=== PATIENT | female | born 1990 | race Caucasian/White ===

== ENCOUNTER 2017-09-24 09:36 | Emergency (ER) | payer SELFPAY ==
[2017-09-24 09:55] VITALS: BP 135/93; PULSE 87; RESP 22; TEMP 98.8
[2017-09-24] MEDS ORDERED: Lidocaine 2% Inj (20ml) INFIL ONE (10:29)
[2017-09-24] MEDS ORDERED: Lidocaine 2% Inj (20ml) ONE (10:32)
[2017-09-24] MEDS ORDERED: Bacitracin 500 Units/gm Oint Foilpak UD ONE (11:18)
--- NOTE | 2017-09-24 11:47 | C.PDOC ---
History Of Present Illness 27 y/o F p/w L hand 4th and 5th digit lacerations suffered 1 hour ago when she accidentally cut herself with a knife while cooking. She states knife was clean. Denies numbness or weakness. Time Seen by Provider: 09/24/17 10:05 Chief Complaint (Nursing): Abnormal Skin Integrity Past Medical History Vital Signs: Last Vital Signs Temp 98.8 F 09/24/17 09:53 Pulse 87 09/24/17 09:53 Resp 22 09/24/17 09:53 BP 135/93 H 09/24/17 09:53 Pulse Ox Family History: States: No Known Family Hx - Social History Hx Alcohol Use: No Hx Substance Use: No - Immunization History Hx Tetanus Toxoid Vaccination: No Review Of Systems Except As Marked, All Systems Reviewed And Found Negative. Eyes: Negative for: Vision Change Respiratory: Negative for: Shortness of Breath Physical Exam - Physical Exam Additional Physical Exam Comments: Gen: NAD Head: NC CV: Radial pulse 2+ Skin: 2cm laceration to flexor aspect of L 4th digit, 1.5 cm laceration to flexor aspect of L 5th digit. FROM intact. Laceration - Laceration Repair No standard instances Wound Length (In cm): 2.0 1.5 Description Of Wound: Linear, Clean Wound Cleansed With: Betadine, Sterile Saline Anesthesia: Lidocaine 2% Wound Examination: Irrigated With Saline, No FB With Wound Exploration, No Tendon Injury With Wound Exploration Wound Closure: Suture (4/4 6-0 ethilon) Suture Technique And Material Used: Interrupted Wound Complexity: Simple Medical Decision Making Medical Decision Making: Tetanus updated. Lacerations closed. Return in 10 days for removal. Return immediately for fever, erythema, discharge of pus, or any other problem. Disposition - Disposition Disposition: HOME/ ROUTINE Disposition Time: 11:47 Condition: STABLE Instructions: Finger Laceration (ED) Forms: [employer] (Icelandic) - Clinical Impression Clinical Impression: Laceration of finger
== END 2017-09-24 11:51 | disposition home or self-care (01) ==
LOC: C.ER 09:36
DX: S61.215A Laceration without foreign body of left ring finger without damage to nail, initial encounter (principal); S61.217A Laceration without foreign body of left little finger without damage to nail, initial encounter; W26.0XXA Contact with knife, initial encounter; Z23 Encounter for immunization

== ENCOUNTER 2017-10-04 13:10 | Emergency (ER) | payer SELFPAY ==
[2017-10-04 13:14] VITALS: BMI 23.5
[2017-10-04 13:16] VITALS: BP 118/73; PULSE 84; TEMP 98.5; O2SAT 98
--- NOTE | 2017-10-04 13:32 | C.PDOC ---
History Of Present Illness FOR SUTURE REMOVAL. PLACED 09/24 PS HEALING WELL. CO DECREASED MOVEMENT L 5TH FINGER "DOESN'T CLOSE ALL THE WAY LIKE BEFORE". NEW ONSET SINCE INJURY. DENIES OTHER ASSOC SX EXAM NONTOXIC EXT L 5TH FINGER LIMITED ROM DIP. FULL ROM PIP. NO DEFORM, SWELL. L 4TH FINGER AROM WO DIFF. SKIN HEALED LAC L 4 & 5 FINGERS. NO SWELL, REDNESS. SUTURES INTACT PROC SUTURES REMOVED W 11 BLADE WO DIFF. PT TOLERATED WELL MDM PT ADVISED NEED FOR HAND SURGEON FU FOR POSSIBLE TENDON INJURY. Time Seen by Provider: 10/04/17 13:17 Chief Complaint (Nursing): Suture/Staple Removal History Per: Patient History/Exam Limitations: no limitations Onset/Duration Of Symptoms: Days Ago (10) Past Medical History Reviewed: Historical Data, Nursing Documentation, Vital Signs Vital Signs: Last Vital Signs Temp 98.5 F 10/04/17 13:13 Pulse 84 10/04/17 13:13 Resp 18 10/04/17 13:13 BP 118/73 10/04/17 13:13 Pulse Ox 98 10/04/17 13:38 Family History: States: No Known Family Hx - Social History Hx Alcohol Use: No Hx Substance Use: No - Immunization History Hx Tetanus Toxoid Vaccination: Yes Hx Influenza Vaccination: No Hx Pneumococcal Vaccination: No Review Of Systems Except As Marked, All Systems Reviewed And Found Negative. Constitutional: Negative for: Fever, Chills Musculoskeletal: Positive for: Other ((+) sutures in left 5th finger, new onset of decrease movement). Negative for: Arm Pain, Hand Pain Neurological: Negative for: Weakness, Numbness Physical Exam - Physical Exam Appears: Non-toxic, No Acute Distress Skin: Warm, Dry, No Rash, Other ((+) healed laceration to left 4th & 5th fingers , no swelling, no redness) Head: Atraumatic, Normacephalic Respiratory: Normal Breath Sounds Extremity: Capillary Refill (<2 secs), Other (Left 5th Finger - Limited ROM at the DIP. Dull ROM at the PIP. No deformity. No swelling. Left 4th finger AROM w/ o difficulty.) Neurological/Psych: Oriented x3, Normal Speech, Normal Sensation ED Course And Treatment O2 Sat by Pulse Oximetry: 98 (RA) Pulse Ox Interpretation: Normal Medical Decision Making Medical Decision Making: NOTE: Patient is advised she is in need for hand surgeon follow up for possible tendon injury SUTURE REMOVAL: Sutures removed with 11 blade, without difficulty. Patient tolerated well. Disposition Counseled Patient/Family Regarding: Diagnosis, Need For Followup - Disposition Referrals: Abdon Martinez MD [Staff Provider] - [facility] [Outside] [facility] [Outside] Disposition: HOME/ ROUTINE Disposition Time: 13:31 Condition: IMPROVED Additional Instructions: USTED TIENE POSIBLE LESIN PROFUNDA DEL DEDO. LLAME AL CIRUJANO DE MANO PARA PROGRAMAR LA CAMERON PARA SAMIA NUEVA EVALUACIN. Instructions: Stitches Removal (ED), Tendon Rupture (ED) Forms: [employer] (Divehi) Print Language: TAMAZIGHT - Clinical Impression Clinical Impression: Removal of suture, Finger dysfunction - Scribe Statement The provider has reviewed the documentation as recorded by the Britanyiblucille Winkler Provider Attestation: All medical record entries made by the Scribe were at my direction and personally dictated by me. I have reviewed the chart and agree that the record accurately reflects my personal performance of the history, physical exam, medical decision making, and the department course for this patient. I have also personally directed, reviewed, and agree with the discharge instructions and disposition.
[2017-10-04 13:49] VITALS: RESP 20
== END 2017-10-04 13:48 | disposition home or self-care (01) ==
LOC: C.ER 13:10
DX: Z48.02 Encounter for removal of sutures (principal); R29.898 Other symptoms and signs involving the musculoskeletal system